=== PATIENT | male | born 1960 | race Caucasian/White ===

== ENCOUNTER 2025-02-03 08:17 | Day surgery (SDC) | payer OTHER, SELFPAY ==
--- NOTE | 2025-02-03 | PATH_ITS ---
[facility] Accession Number: [id number] No. of containers..01 Tissue . 01 Material submitted: . colon - RECTOSIGMOID JUNCTION POLYP . 01 Diagnosis: RECTOSIGMOID JUNCTION POLYP: Hyperplastic polyp. [facility] 02/10/2025 0958 Local . 01 Electronically signed: . Telma Land MD, Pathologist NPI- [id number] . 01 Gross description: . Received is one formalin-filled container labeled with the patient's name and labeled rectosigmoid junction polyp, is one fragment of toro, soft tissue which measures 0.4 x 0.3 x 0.2 cm. The specimen is totally submitted in cassette A1. ([id number]) /[facility] 02/06/2025 0533 Local . 01 Pathologist provided ICD-10: D12.7 . 01 CPT . 044422 Specimen Comment: A courtesy copy of this report has been sent to [facility] Pathology Performed at: [address] [address], [place], [place] [id number] MD Darrell Chiang MD Phone: [phone]
--- NOTE | 2025-02-03 07:49 | P.HP_ITS ---
History of Present Illness History of Present Illness Date Patient Seen: 02/03/25 Time Patient Seen: 07:49 Chief complaint: SDC Narrative: Patient presents for screening colonoscopy today. [facility] Medical History (Updated 02/03/25 @ 07:50 by Eran Bear MD) GERD (gastroesophageal reflux disease) Dural tear Positive colorectal cancer screening using Cologuard test Myocardial infarct (2009) Prediabetes Neuropathic pain Chronic low back pain Osteoarthritis Coronary atherosclerosis HTN (hypertension) VAISHALI (obstructive sleep apnea) Morbid obesity HLD (hyperlipidemia) Surgical History (Updated 01/28/25 @ 10:06 by Leeanna Cosme RN) Hx of heart artery stent Hx of tonsillectomy S/P ACL reconstruction S/P total left hip arthroplasty Meds Home Medications and Allergies Home Medications ?Medication ?Instructions ?Recorded ?Confirmed ?Type sodium,potassium,mag sulfates 17.5 See Rx Instructions PO .COMPLEX 12/18/24 Rx gram-3.13 gram-1.6 gram oral soln #354 mL (Suprep Bowel Prep Kit) atorvastatin 20 mg tablet 20 mg PO DAILY 01/28/2501/06 History carvedilol 6.25 mg tablet 6.25 mg PO BID blood pressur e 01/28/25 01/28/25 History clopidogrel 75 mg tablet 75 mg PO DAILY 01/28/2501/06 History cyclobenzaprine 10 mg tablet 10 mg PO 3XD PRN muscle p ain 01/28/25 01/28/25 History duloxetine 30 mg capsule,delayed 60 mg PO DAILY chroni c pain 01/28/25 01/28/25 History release duloxetine 60 mg capsule,delayed 60 mg PO DAILY pain 0 01/28/25 01/28/25 History release gabapentin 600 mg tablet 600 mg PO 3XD neuropathic pa in 01/28/25 01/28/25 History losartan 25 mg tablet 25 mg PO DAILY blood pressur e 01/28/25 01/28/25 History Allergies Allergy/AdvReac Type Severity Reaction Status Date / Time No Known Drug Allergies Allergy Verified 01/28/25 09:35 Exam Narrative Exam Narrative: Const General: comfortable Orientation: alert and oriented x3 Resp Effort & Inspection: normal respiratory effort and able to speak in complete sentences Cardio Rate: regular rate GI Palpation: soft (NT) Extrem General: no pedal edema and no calf tenderness Assessment & Plan Assessment and plan (1) Encounter for screening colonoscopy: Status: Acute Plan Colonoscopy, possible biopsy. The risks, benefits and options regarding the procedure were explained to the patient in detail. Risk discussion included but not limited to: bleeding, perforation, unable to reach cecum, missed lesion. The patient was encouraged to ask questions and they were answered to their satisfaction. The patient understands and is agreeable to proceed. Time-Based Coding :: [TOTAL MINUTES] spent with patient and on the chart (including review of chart, obtaining history, exam, reviewing outside data, placing orders, documenting exam and treatment plan, and counseling patient) on [DATE]. 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
--- NOTE | 2025-02-03 09:04 | EKG_ITS ---
[address] [address] Test Date: 2025-02-03 Pat Name: Nazario Perkins Department: Room: Gender: Male Technical Trainer: Salvatore BOSWELL : 1960 Requested By: Order Number: [id number] Reading MD: Leonard Cadet Measurements Intervals [place] Rate: 53 P: TX: 186 QRS: 0 QRSD: 66 T: 7 QT: 418 QTc: 392 Interpretive Statements Sinus bradycardia Low voltage QRS Possible Inferior infarct , age undetermined Cannot rule out Anterior infarct , age undetermined Electronically Signed On 02-04-2025 8:14:14 PDT by Leonard Cadet
[2025-02-03 09:06] VITALS: BP 143/75; PULSE 58; RESP 18; TEMP 36.3; O2SAT 100
[2025-02-03] MEDS: LACTATED RINGERS 1,000 ML 42 ML IV (09:22)
--- NOTE | 2025-02-03 10:11 | P.OP.COLON_ITS ---
Operative Date/Time/Diagnoses Date of procedure: 02/03/25 Time of procedure: 10:39 Pre-op diagnosis: Screening colonoscopy Post-op diagnosis: other (rectosigmoid polyp) Procedure & Clinicians Study performed: Colonoscopy Same procedure(s) as scheduled: Yes Indications: 64yo M, +cologuard test, screening colonosocpy. Paternal grandmother with colon cancer. Surgeon: Eran Bear Anesthesia Type: MAC +/- Procedure Notes SCOAP/Timeout: Performed Procedure in detail: Colonoscopy Patient placed in left lateral recumbent position. Time out was performed. Procedural sedation was administered by anesthesia. Examination began with a thorough inspection of the perianal area. There was no evidence of fissures, fistulae, external hemorrhoids or cutaneous malignancy. The colonoscope was then placed into the rectum and the lumen was insufflated with carbon dioxide. The scope was carefully advanced forward. Ultimately the cecum was intubated and confirmed by identification of the ileocecal valve, the appendiceal orifice and the confluence of the taenia. The scope was then slowly withdrawn examining the colon thoroughly in all directions. In the rectum, retroflexion of the scope was performed for inspection of the distal rectum and anal canal. ?Significant colonoscopy findings: ?1. Quality of the preparation-good, [place] 2-3, improved with irrigation/suction ?2. 3mm sessile, benign-appearing polyp at rectosigmoid junction, removed with cold snare and retrieved for pathology 3. Anal fissure noted at 6 o'clock posterior midline, pile noted at internal end of fissure Scope withdrawal time: 6 Findings: polyp(s) and other findings (anal fissure 6 o'clock) Specimen(s): other (polyp) Complications: none Impression: Rectosigmoid polyp, pathology Post-procedure Recommendations: Colonoscopy in 10 years Plan for aftercare: PACU then home Cream for anal fissure called in to compounding pharmacy Follow up: as needed Disposition: PACU
[2025-02-03 10:37] VITALS: BP 106/54; PULSE 56; RESP 16; TEMP 36.2; O2SAT 97
[2025-02-03 10:42] VITALS: BP 115/60; PULSE 55; RESP 16; O2SAT 97
[2025-02-03 10:47] VITALS: BP 125/66; PULSE 54; RESP 16; O2SAT 98
== END 2025-02-03 10:55 | disposition home or self-care (01) ==
PROVIDERS: PCP Nurse Practitioner Family; Referring Provider Nurse Practitioner Family; Visit Provider Surgery
PROC: 0DJD8ZZ Inspection of Lower Intestinal Tract, Via Natural or Artificial Opening Endoscopic (ICD-10-PCS; CPT 45378; principal; 2025-02-03 09:30)
DX: Z12.11 Encounter for screening for malignant neoplasm of colon (principal); R19.5 Other fecal abnormalities; K60.2 Anal fissure, unspecified; K63.5 Polyp of colon
CPT/HCPCS: 45385; 93005; J2704